=== PATIENT | female | born 1985 | race Caucasian/White ===

== ENCOUNTER 2021-02-21 21:58 | Inpatient (IN) | payer OTHER ==
[~2021-02-21] VITALS: Ht 157.5 cm; Wt 60.5 kg
[2021-02-21] MEDS ORDERED: GABAPENTIN100 MG (22:02)
[2021-02-21] MEDS ORDERED: SYNTHROID100 MCG PO (22:02)
[2021-02-22 00:24] VITALS: BP 108/61; Ht 157.5 cm; Wt 60.5 kg
[2021-02-22 04:00] VITALS: BP 113/63
[2021-02-22 06:19] LABS: BASOPHILS 0.1 % (0-2); EOSINOPHILS 0.2 % (0-7); HEMATOCRIT 38.7 % (36.0-48.0); IMMATURE GRANULOCYTES 0.4 % (0-5); LYMPHOCYTE ABS# 0.93 10x3/uL (1.18-3.74); LYMPHOCYTES 7.1 % (15-50); MCH 32.4 pg (26.0-34.0); MCHC 33.6 g/dL (31.0-37.0); MCV 96.5 fL (80.0-100.0); MEAN PLATELET VOLUME 10.1 fL (7.4-10.4); MONOCYTES 6.3 % (2-11); NEUTROPHIL ABS# 11.26 10x3/uL (1.56-6.13); NEUTROPHILS 85.9 % (40-80); PLATELET COUNT 278 10x3/uL (130-400); RBC 4.01 10x6/uL (4.00-5.40); RDW 12.5 % (11.5-14.5); WBC 13.1 10x3/uL (4.8-10.8)
[2021-02-22 07:22] LABS: ALBUMIN 3.3 g/dL (3.4-5.0); ALKALINE PHOSPHATASE 68 U/L (30-120); ALT (SGPT) 23 U/L (10-68); BILIRUBIN - TOTAL 0.48 mg/dL (0.2-1.3); CALC OSMOLALITY 275 mosm/kg (275-300); CALCIUM 8.6 mg/dL (8.5-10.1); CHLORIDE - SERUM 104 mmol/L (98-107); CREATININE - SERUM 0.6 mg/dL (0.6-1.3); GLUCOSE 97 mg/dL (74-106); PHOSPHOROUS 3.9 mg/dL (2.5-4.9); POTASSIUM - SERUM 4.2 mmol/L (3.5-5.1); PROTEIN - SERUM 6.6 g/dL (6.4-8.2); SODIUM 139 mmol/L (136-145); UREA NITROGEN 8 mg/dL (7-18); eGFR NON AFRICAN AMERICAN > 90 mL/min (90-120)
[2021-02-22 08:52] VITALS: BP 99/51
--- NOTE | 2021-02-22 09:06 | NUR ---
0700 BEDSIDE REPORT RECEIVED PT GETTING OUT OF SHOWER AND HOOKED UP IV TO RIGHT AC FLUSHED
--- NOTE | 2021-02-22 09:07 | NUR ---
0900 PATIENT BACK IN SHOWER AFTER DISCONNECTIONG IV
--- NOTE | 2021-02-22 09:08 | NUR ---
0907 PATIENT REQUESTING AMA FORM NOTIFIED EMIGDIO BARBER
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
--- NOTE | 2021-02-22 16:52 | NUR ---
1000 LEFT MESSAGE FOR PATIENT THAT SHE LEFT HER BELONGINGS IN HER ROOM
== END 2021-02-22 09:15 | disposition left against medical advice (07) | DRG 392 ==
LOC: D.ER 21:58 → D.MS 22:33
PROVIDERS: Family Medicine; ADMIT Family Medicine; ATTEND Family Medicine
DX: K57.92 Diverticulitis of intestine, part unspecified, without perforation or abscess without bleeding (principal); F17.203 Nicotine dependence unspecified, with withdrawal; E03.9 Hypothyroidism, unspecified